=== PATIENT | male | born 1980 | race Caucasian/White ===

== ENCOUNTER 2018-05-29 16:35 | Emergency (ER) | payer BC ==
[~2018-05-29] VITALS: Ht 180.3 cm; Wt 84.7 kg
[2018-05-29 16:37] VITALS: TEMP 37; Ht 180.3 cm; Wt 84.7 kg
--- NOTE | 2018-05-29 18:16 | DIAGNOSTIC IMAGING REPORT ---
(TESTICULAR) SCROTUM-CONT CLINICAL HISTORY: 37 years-old Male presenting with L testicular pain. TECHNIQUE: Real-time grayscale and color and spectral Doppler ultrasound imaging of the scrotum was performed. COMPARISON: None. FINDINGS: Right testis: Normal echogenicity and echotexture. Testis measures 3.4 x 4.8 x 2.4 cm. Normal color Doppler flow and arterial and venous waveforms in the testicular parenchyma. Two cysts evident in the epididymal head, the larger measuring 10 mm, likely epididymal cysts versus spermatocele. Trace hydrocele. No varicocele. Left testis: Normal echogenicity and echotexture. Testis measures 3.4 x 4.7 x 2.7 cm. Normal color Doppler flow and arterial and venous waveforms in the testicular parenchyma. 5 mm cyst evident in the epididymal head, either epididymal cyst versus spermatocele. Small hydrocele with internal echoes. 4 mm calcification noted superior to the testis, likely appendix testis or scrotolith. No varicocele. Symmetric perfusion of the testes. IMPRESSION: 1. No evidence of testicular torsion or epididymitis-orchitis. 2. Small left and trace right hydroceles. Internal echoes in the left hydrocele may suggest complexity. Electronically signed by: Marques Langley M.D. 05/29/2018 6:15 PM Dictated Date/Time: 05/29/2018 6:11 PM
[2018-05-29] MEDS ORDERED: IBUP-1451 PO (19:01)
[2018-05-29 19:06] VITALS: BP 132/89; PULSE 67; O2SAT 96
--- NOTE | 2018-05-29 20:47 | EMERGENCY ROOM VISIT NOTE ---
History Report prepared by Nereida: Shaina Tim Under the Supervision of: Dr. Stephen Duarte M.D. First contact with patient: 16:44 Chief Complaint: TESTICULAR PAIN Stated Complaint: PAIN IN THIGH AND TESTICLE History of Present Illness The patient is a 37 year old male who presents to the Emergency Room with complaints of worsening testicular pain starting a few days ago. The patient states that the pain is mainly in his testicles by his inner thigh. He states that the pain sometimes radiates into his back and sometimes down his left leg. He reports that the pain is intermittent. He notes that it is worse when he walks. The patient denies recent trauma to the area, pain with urination, hematuria, hematochezia, melena, fever, abdominal pain and penile discharge. He notes that he had a lump on one of his testicles in 2013 that had an ultrasound done, but was negative. Source of History: patient Onset: a few days ago Position: other (testicles) Quality: other (radiating) Timing: worsening Modifying Factors (Worsening): movement (walking) Associated Symptoms: + back pain, No fevers, No abdominal pain, No melena, No hematochezia, No urinary symptoms Note: The patient complains of leg pain. The patient denies recent trauma to the area and penile discharge. Review of Systems See HPI for pertinent positives and negatives. A total of ten systems were reviewed and were otherwise negative. Past Medical & Surgical Medical Problems: (1) No Known Active Medical Problems No known medical problems. Family History No pertinent family history Social History Smoking Status: Never Smoker Marital Status: Housing Status: lives with family Occupation Status: employed Current/Historical Medications Scheduled PRN Ibuprofen Tab (Motrin), 800 MG PO Q8H PRN for Pain Allergies Coded Allergies: No Known Allergies (Unverified , 05/29/18) Physical Exam Vital Signs Date Time Temp Pulse Resp B/P (MAP) Pulse Ox O2 Delivery O2 Flow Rate FiO2 05/29/18 19:06 67 18 132/89 96 05/29/18 18:16 79 16 124/81 100 Room Air 05/29/18 16:37 37.0 87 17 146/80 99 Room Air Physical Exam Physical Exam GENERAL: He is oriented to person, place, and time. He appears well-developed and well-nourished. He does not appear distressed. HENT: Exam performed. Head: Normocephalic and atraumatic. Right Ear: External ear normal. No mastoid tenderness. Left Ear: External ear normal. No mastoid tenderness. Mouth/Throat: The oropharynx is clear and moist. No trismus in the jaw. No dental abscesses or uvula swelling. No oropharyngeal exudate or tonsillar abscesses. EYES: Conjunctivae and EOM are normal. Pupils are equal, round, and reactive to light. Right eye exhibits no discharge. Left eye exhibits no discharge. No scleral icterus. NECK: Normal range of motion. Neck supple. No JVD present. No spinous process tenderness present. No carotid bruit present. No rigidity. No tracheal deviation and normal range of motion present. No Brudzinski's sign and no Kernig 's sign noted. CV: Normal rate, regular rhythm, normal heart sounds and intact distal pulses. There is no peripheral edema. Palpable radial pulses bue. PULM/CHEST: Effort normal and breath sounds normal. No respiratory distress. No stridor. He has no wheezes. He has no rales. Chest Wall: He exhibits no tenderness. ABD: The abdomen is soft. Bowel sounds are normal. He has no distension. No mass is present. There is no tenderness. There is no rebound, no guarding, no Montague's sign and no tenderness at McBurney's point. Rovsig negative. : No inguinal hernia. Cremasteric reflex present bilaterally. No pain with palpation of testicles. No skin lesions of genitals. No discharge from the urethra. MUSC/SKEL: Normal range of motion. There is no peripheral edema, tenderness or deformity. LYMPH: No cervical adenopathy. NEURO: He is alert and oriented to person, place, and time. He has normal strength. No cranial nerve deficit or sensory deficit. Coordination and gait normal. GCS eye subscore is 4. GCS verbal subscore is 5. GCS motor subscore is 6. Cerebellar tests wnl. SKIN: Skin is warm and dry. He is not diaphoretic. PSYCH: He has a normal mood and affect. Behavior is normal. Judgment and thought content normal. Medical Decision & Procedures ER Provider Diagnostic Interpretation: Radiology results as stated below per my review and radiologist interpretation: (TESTICULAR) SCROTUM-CONT CLINICAL HISTORY: 37 years-old Male presenting with L testicular pain. TECHNIQUE: Real-time grayscale and color and spectral Doppler ultrasound imaging of the scrotum was performed. COMPARISON: None. FINDINGS: Right testis: Normal echogenicity and echotexture. Testis measures 3.4 x 4.8 x 2.4 cm. Normal color Doppler flow and arterial and venous waveforms in the testicular parenchyma. Two cysts evident in the epididymal head, the larger measuring 10 mm, likely epididymal cysts versus spermatocele. Trace hydrocele. No varicocele. Left testis: Normal echogenicity and echotexture. Testis measures 3.4 x 4.7 x 2.7 cm. Normal color Doppler flow and arterial and venous waveforms in the testicular parenchyma. 5 mm cyst evident in the epididymal head, either epididymal cyst versus spermatocele. Small hydrocele with internal echoes. 4 mm calcification noted superior to the testis, likely appendix testis or scrotolith. No varicocele. Symmetric perfusion of the testes. IMPRESSION: 1. No evidence of testicular torsion or epididymitis-orchitis. 2. Small left and trace right hydroceles. Internal echoes in the left hydrocele may suggest complexity. Electronically signed by: Marques Langley M.D. 05/29/2018 6:15 PM Dictated Date/Time: 05/29/2018 6:11 PM Laboratory Results Test 05/29/18 17:39 Urine Color YELLOW Urine Appearance CLEAR (CLEAR) Urine pH 6.0 (4.5-7.5) Urine Specific Frontier 1.024 (1.000-1.030) Urine Protein NEG (NEG) Urine Glucose (UA) NEG (NEG) Urine Ketones 1+ (NEG) Urine Occult Blood 1+ (NEG) Urine Nitrite NEG (NEG) Urine Bilirubin NEG (NEG) Urine Urobilinogen NEG (NEG) Urine Leukocyte Esterase NEG (NEG) Urine WBC (Auto) 10-30 /hpf (0-5) Urine RBC (Auto) 10-30 /hpf (0-4) Urine Hyaline Casts (Auto) 10-30 /lpf (0-5) Urine Epithelial Cells (Auto) 20-30 /lpf (0-5) Urine Bacteria (Auto) NEG (NEG) Laboratory results reviewed by il ED Course 165: The patient was evaluated in room C2B. A complete history and physical exam was performed. 0: Vitals are stable. Ultrasound and urinalysis within normal limits. He will be discharged with Analgesia and follow up with urology. DISCHARGE - Plan of care discussed with patient and questions answered. The patient was given both verbal and printed discharge instructions. The patient verbalized understanding and ability to comply. The patient is to seek outpatient follow up as noted in the discharge instructions. The patient verbalized understanding and ability to comply. The patient is discharged in stable condition. The patient was instructed to return for worsening symptoms. Medical Decision Vitals are stable. Ultrasound and urinalysis within normal limits. He will be discharged with Analgesia and follow up with urology. DISCHARGE - Plan of care discussed with patient and questions answered. The patient was given both verbal and printed discharge instructions. The patient verbalized understanding and ability to comply. The patient is to seek outpatient follow up as noted in the discharge instructions. The patient verbalized understanding and ability to comply. The patient is discharged in stable condition. The patient was instructed to return for worsening symptoms. Medication Reconcilliation Current Medication List: was personally reviewed by me Blood Pressure Screening Patient's blood pressure: Elevated blood pressure Blood pressure disposition: Elevated BP felt to be situational Impression Primary Impression: Hydrocele Scribe Attestation The scribe's documentation has been prepared under my direction and personally reviewed by me in its entirety. I confirm that the note above accurately reflects all work, treatment, procedures, and medical decision making performed by me. The chart was completed utilizing [employer] Speech voice recognition software. Grammatical errors, random word insertions, pronoun errors, and incomplete sentences are an occasional consequence of this system due to software limitations, ambient noise, and hardware issues. Any formal questions or concerns about the content, text, or information contained within the body of this dictation should be directly addressed to the physician for clarification. Departure Information Dispostion Home / Self-Care Prescriptions Ibuprofen Tab (MOTRIN) 800 Mg Tab 800 MG PO Q8H Y for Pain, #30 TAB Prov: Stephen Duarte M.D. 05/29/18 Forms HOME CARE DOCUMENTATION FORM, IMPORTANT VISIT INFORMATION, WORK / SCHOOL INSTRUCTIONS Patient Instructions My [facility] Problem Qualifiers Primary Impression: Hydrocele Hydrocele type: unspecified Qualified Codes: N43.3 - Hydrocele, unspecified
== END 2018-05-29 19:06 | disposition home or self-care (01) ==
LOC: C.EDB 16:38 → C.EDC 19:06
DX: N43.3 Hydrocele, unspecified (principal); M54.9 Dorsalgia, unspecified; M79.605 Pain in left leg